=== PATIENT | female | born 1955 | race Caucasian/White ===

== ENCOUNTER 2023-04-02 12:10 | Inpatient (IN) ==
[~2023-04-02 12:10] MED LIST: Buffered Lidocaine 1% SYRIN 1 ml INTRADERM ONE; Lactated Ringers 1000 ml BAG 1,000 ML IV SCH; NS 0.9% 1000 ml BAG 1,000 ML IV ONE; Naloxone 0.4 mg VIAL 0.4 mg/ml 1 ml VIAL IV PRN; Ondansetron 4 mg VIAL 2 MG/ML 2 ml VIAL IV PRN
[2023-04-02 13:21] LABS: INR 1.1 (0.83-1.13)
[2023-04-02] MEDS ORDERED: ceFAZolin 2 GM in NS PREMIX 2 GM/100 ML BAG IVPB ONE (13:31)
[2023-04-02 13:37] LABS: Albumin 3.2 g/dL (3.2-5.2); Albumin/Globulin Ratio 1.6 (1-3); Calcium 7.7 mg/dL (8.6-10.3); Creatinine, Serum 3.71 mg/dL (0.51-0.95); Direct Bilirubin 0.1 mg/dL (0.03-0.18); Indirect Bilirubin 0.2 mg/dL (0.3-1.0); Potassium 5.2 mmol/L (3.5-5.0); Total Bilirubin 0.3 mg/dL (0.2-1.0); Total Protein 5.2 g/dL (6.4-8.9); eGFR CKD-EPI 12.7 (>60)
[2023-04-02 13:43] LABS: Hematocrit 27.5 % (35-45); Hemoglobin 8.5 g/dL (11.5-14.3); Mean Corpuscular Hemoglobin 29.9 pg (27-33); Mean Corpuscular Hgb Conc 30.8 g/dL (31-36); Red Blood Count 2.84 10^6/uL (3.63-4.92); Red Cell Distribution Width 17.4 % (12-17); White Blood Count 3.6 10^3/uL (3.8-11.8)
[2023-04-02 14:03] LABS: Rapid COVID-19 Molecular Undetected (Undetected)
[2023-04-02 14:22] LABS: ABS Lymphocytes 0.4 10^3/uL (1.0-4.8); ABS Monocytes 0.2 10^3/uL (0.0-0.9); ABS Nucleated RBC 0.01 10^3/ul; Burr Cells 2+; Eosinophil % 0.4 %; Lymphocyte % 12.3 %; Mean Platelet Volume 8.2 fL (7.5-11.2); Nucleated Red Blood Cells % 0.3 %/100WBC (0.0-0.8); Platelet Count 22 10^3/uL (150-450); Schistocytes 1+; Tear Drop Cells 1+
[2023-04-02] MEDS ORDERED: Calcium CHLORIDE 10% SYRINGE 1 GM/10 ML ONE (14:25)
[2023-04-02 15:28] LABS: ABS Lymphocytes 0.4 10^3/uL (1.0-4.8); ABS Monocytes 0.2 10^3/uL (0.0-0.9); ABS Neutrophils 2.2 10^3/uL (1.5-7.6); Eosinophil % 0.3 %; Hematocrit 22.1 % (35-45); Hemoglobin 6.9 g/dL (11.5-14.3); Lymphocyte % 12.7 %; Mean Corpuscular Hemoglobin 30.1 pg (27-33); Mean Corpuscular Hgb Conc 31.3 g/dL (31-36); Mean Platelet Volume 8.4 fL (7.5-11.2); Nucleated Red Blood Cells % 0.2 %/100WBC (0.0-0.8); Platelet Count 241 10^3/uL (150-450); White Blood Count 2.9 10^3/uL (3.8-11.8)
[2023-04-02] MEDS ORDERED: Lidocaine 2% PF 5 ML VIAL ONE ×2 (15:41→16:29)
[2023-04-02] MEDS ORDERED: fentaNYL 100 mcg/2 ml 50 MCG/ML VIAL ONE ×2 (15:42→18:58)
[2023-04-02] MEDS ORDERED: Bupivacaine 0.25% SDV PF 10 ML VIAL INJ ONE (15:57)
[2023-04-02] MEDS ORDERED: Methylene Blue 1% (ANTIDOTE) 10 MG/ML 1 ML SDV VIAL IVPB ONE (15:57)
[2023-04-02] MEDS ORDERED: Lidocaine 1% w EPI 1:200,000 SDV 30 ML VIAL ONE (15:57)
[2023-04-02] MEDS ORDERED: Etomidate 20 mg/10 ml 2 MG/ML 10 ml VIAL ONE (16:26)
[2023-04-02] MEDS ORDERED: Rocuronium 50 mg VIAL 10 mg/ml 5 ml VIAL (50 mg) ONE (16:27)
[2023-04-02 16:56] LABS: PCO2 Arterial <20 mmHg (35-45); PO2 Arterial 132 mmHg (80-100)
[2023-04-02] MEDS ORDERED: Sodium Bicarbonate 8.4% 10 ML VIAL IV ONE (17:02)
[2023-04-02] MEDS ORDERED: Propofol 10 MG/ML 20 ML BTL ONE (17:49)
[2023-04-02] MEDS ORDERED: Ondansetron 4 mg VIAL 2 MG/ML 2 ml VIAL ONE ×2 (17:49→18:54)
[2023-04-02] MEDS ORDERED: Dexamethasone IV 4 MG/ML VIAL 1 ml VIAL ONE (17:49)
[2023-04-02] MEDS ORDERED: HYDROmorphone 1 MG/1 ML SYRINGE ONE (18:54)
[2023-04-02] MEDS: fentaNYL 100 mcg/2 ml 50 MCG/ML VIAL IV PRN ×2 (19:00→19:28)
[2023-04-02 19:16] LABS: PCO2 Arterial 21 mmHg (35-45); PO2 Arterial 108 mmHg (80-100)
[2023-04-02] MEDS ORDERED: Zaleplon 10 mg CAP (NF) PO PRN (19:23)
[2023-04-02 20:32] LABS: ABS Basophils 0.1 10^3/uL (0.0-0.1); ABS Lymphocytes 0.2 10^3/uL (1.0-4.8); ABS Monocytes 0.3 10^3/uL (0.0-0.9); ABS Neutrophils 3.8 10^3/uL (1.5-7.6); Hematocrit 25.3 % (35-45); Hemoglobin 7.5 g/dL (11.5-14.3); Lymphocyte % 3.8 %; Mean Corpuscular Hemoglobin 29.6 pg (27-33); Mean Corpuscular Hgb Conc 29.6 g/dL (31-36); Mean Corpuscular Volume 100.2 fL (80-97); Mean Platelet Volume 8.4 fL (7.5-11.2); Platelet Count 220 10^3/uL (150-450); Red Blood Count 2.53 10^6/uL (3.63-4.92); Red Cell Distribution Width 17.4 % (12-17); White Blood Count 4.3 10^3/uL (3.8-11.8)
[2023-04-02 20:53] LABS: Creatinine, Serum 3.42 mg/dL (0.51-0.95); Magnesium 1.5 mg/dL (1.9-2.7); Phosphorus 4.8 mg/dL (2.5-5.0)
[2023-04-02] MEDS ORDERED: MYCOPHENOLATE MOFETIL 200 MG/ML PO SCH (21:00)
[2023-04-02] MEDS: HYDROmorphone 1 MG/1 ML SYRINGE IV SLOW PU PRN ×2 (21:28→22:27)
[2023-04-02] MEDS: Sodium Bicarb 8.4% Vial 50 ML 150 MEQ in D5W 1000 ml BAG 850 ML IV SCH (21:45)
[2023-04-02] MEDS: Heparin 5000 UNITS/ML 1 mL VIAL SUBCUT SCH (22:11)
[2023-04-02] MEDS ORDERED: HYDROmorphone 0.5 MG/0.5 ML SYRINGE IV SLOW PU ONE ×2 (22:18→23:20)
[2023-04-02] MEDS ORDERED: Magnesium Sulfate 2 gm BAG 2 GM/50 ML BAG IVPB ONE (22:29)
[2023-04-02] MEDS: MYCOPHENOLATE MOFETIL 200 MG/ML PO SCH (22:34)
[2023-04-02] MEDS ORDERED: HYDROmorphone 1 MG/1 ML SYRINGE IV SLOW PU PRN (23:09)
[2023-04-02] MEDS: Lactated Ringers 1000 ml BAG 1,000 ML IV SCH (23:10)
[2023-04-02] MEDS: HYDROmorphone 0.5 MG/0.5 ML SYRINGE IV SLOW PU PRN (23:36)
[2023-04-03 00:15] LABS: PCO2 Arterial 27 mmHg (35-45); PO2 Arterial 62 mmHg (80-100)
[2023-04-03] MEDS ORDERED: Magnesium Sulfate IV 1GM/100ML 1 GM/100 ML BAG IV ONE (00:29)
[2023-04-03 01:27] LABS: Calcium 7.4 mg/dL (8.6-10.3); Creatinine, Serum 3.44 mg/dL (0.51-0.95); Potassium 5.1 mmol/L (3.5-5.0); eGFR CKD-EPI 13.9 (>60)
[2023-04-03] MEDS: HYDROmorphone 0.5 MG/0.5 ML SYRINGE IV SLOW PU PRN ×4 (05:38→19:50)
[2023-04-03 07:04] LABS: Hematocrit 24.5 % (35-45); Hemoglobin 7.6 g/dL (11.5-14.3); Mean Corpuscular Hemoglobin 29.8 pg (27-33); Mean Corpuscular Volume 96.1 fL (80-97); Mean Platelet Volume 8.9 fL (7.5-11.2); Platelet Count 257 10^3/uL (150-450); Red Blood Count 2.55 10^6/uL (3.63-4.92); Red Cell Distribution Width 16.9 % (12-17); White Blood Count 2.6 10^3/uL (3.8-11.8)
[2023-04-03 07:13] LABS: Urine Potassium Concentration 22.9 mmol/L
[2023-04-03 07:34] LABS: ABS Lymphocytes 0.3 10^3/uL (1.0-4.8); ABS Monocytes 0.3 10^3/uL (0.0-0.9); ABS Neutrophils 2.1 10^3/uL (1.5-7.6); Eosinophil % 0.4 %; Lymphocyte % 11.1 %
[2023-04-03 07:37] LABS: Albumin 2.6 g/dL (3.2-5.2); Albumin/Globulin Ratio 1.5 (1-3); Calcium 7.3 mg/dL (8.6-10.3); Creatinine, Serum 3.35 mg/dL (0.51-0.95); Globulin 1.7 g/dL (2-4); Magnesium 1.4 mg/dL (1.9-2.7); Phosphorus 4.8 mg/dL (2.5-5.0); Potassium 4.6 mmol/L (3.5-5.0); Total Bilirubin 0.2 mg/dL (0.2-1.0); Total Protein 4.3 g/dL (6.4-8.9); eGFR CKD-EPI 14.4 (>60)
[2023-04-03] MEDS: Ondansetron 4 mg VIAL 2 MG/ML 2 ml VIAL IV PRN ×2 (08:16→15:32)
[2023-04-03] MEDS: Heparin 5000 UNITS/ML 1 mL VIAL SUBCUT SCH ×2 (08:20→21:05)
[2023-04-03] MEDS: MYCOPHENOLATE MOFETIL 200 MG/ML PO SCH ×2 (08:24→20:55)
[2023-04-03] MEDS ORDERED: Magnesium Sulf 4 GM/100 ML IV 4,000 MG/100 ML BAG IVPB ONE (08:30)
[2023-04-03] MEDS: Sodium Bicarb 8.4% Vial 50 ML 150 MEQ in D5W 1000 ml BAG 850 ML IV SCH ×2 (09:11→21:05)
[2023-04-03 09:38] LABS: Urine Osmo 347 mOsm/kg (150-1150)
[2023-04-03] MEDS: Lactated Ringers 1000 ml BAG 1,000 ML IV SCH (15:13)
[2023-04-04] MEDS: HYDROmorphone 0.5 MG/0.5 ML SYRINGE IV SLOW PU PRN ×4 (00:32→20:09)
[2023-04-04] MEDS: Lactated Ringers 1000 ml BAG 1,000 ML IV SCH ×3 (04:34→16:30)
[2023-04-04 06:04] LABS: Hematocrit 20.7 % (35-45); Hemoglobin 6.6 g/dL (11.5-14.3); Mean Corpuscular Hemoglobin 29.4 pg (27-33); Mean Corpuscular Hgb Conc 31.8 g/dL (31-36); Mean Corpuscular Volume 92.5 fL (80-97); Mean Platelet Volume 9.2 fL (7.5-11.2); Platelet Count 189 10^3/uL (150-450); Red Blood Count 2.23 10^6/uL (3.63-4.92); Red Cell Distribution Width 16.8 % (12-17); White Blood Count 2.4 10^3/uL (3.8-11.8)
[2023-04-04 06:33] LABS: Calcium 6.7 mg/dL (8.6-10.3); Creatinine, Serum 2.79 mg/dL (0.51-0.95); Potassium 4.1 mmol/L (3.5-5.0); eGFR CKD-EPI 17.9 (>60)
[2023-04-04] MEDS: Ondansetron 4 mg VIAL 2 MG/ML 2 ml VIAL IV PRN ×3 (07:24→20:56)
[2023-04-04] MEDS: Sodium Bicarb 8.4% Vial 50 ML 150 MEQ in D5W 1000 ml BAG 850 ML IV SCH (07:39)
[2023-04-04 07:45] LABS: Albumin 2.2 g/dL (3.2-5.2); Albumin/Globulin Ratio 1.6 (1-3); Globulin 1.4 g/dL (2-4); Magnesium 2.5 mg/dL (1.9-2.7); Phosphorus 3.2 mg/dL (2.5-5.0); Total Bilirubin 0.2 mg/dL (0.2-1.0); Total Protein 3.6 g/dL (6.4-8.9)
[2023-04-04] MEDS: MYCOPHENOLATE MOFETIL 200 MG/ML PO SCH (09:38)
[2023-04-04] MEDS: Heparin 5000 UNITS/ML 1 mL VIAL SUBCUT SCH ×2 (09:39→20:11)
[2023-04-04 09:55] LABS: Hematocrit 21.4 % (35-45)
[2023-04-04 11:14] LABS: % Iron Saturation 19 % (15-55); .Transferrin < 75 mg/dL (203-362); Iron < 20 ug/dL (50-212); Total Iron Binding Capacity 105 mcg/dL (250-450); Unsaturated Iron Binding 85 ug/dL
[2023-04-04 11:36] LABS: Ferritin 343.8 ng/mL (11-307)
[2023-04-04 11:40] LABS: Folate 4.35 ng/mL (5.90-24.80)
[2023-04-04 11:41] LABS: Vitamin B12 179 pg/mL (180-914)
[2023-04-04] MEDS ORDERED: Ferric Gluconate IV 250 MG in NS 0.9% 250 ml 200 ML IVPB ONE (13:09)
[2023-04-04] MEDS ORDERED: Cyanocobalamin INJ 1,000 MCG/ML VIAL 1 ML VIAL IM ONE (15:32)
[2023-04-04] MEDS ORDERED: Folic Acid IV 1 MG in NS 0.9% 50 ML 50 ML IV ONE (15:35)
[2023-04-04 16:33] LABS: Tacrolimus 8.8 ng/mL
[2023-04-05 05:39] LABS: ALT < 3 U/L (7-52); AST 8 U/L (13-39); Albumin 2.1 g/dL (3.2-5.2); Albumin/Globulin Ratio 1.6 (1-3); Alkaline Phosphatase 52 U/L (35-149); Anion Gap 5 mmol/L (2-16); Blood Urea Nitrogen 38 mg/dL (6-24); CO2 Carbon Dioxide 27 mmol/L (22-32); Calcium 6.3 mg/dL (8.6-10.3); Chloride 109 mmol/L (101-111); Creatinine, Serum 2.99 mg/dL (0.51-0.95); Globulin 1.3 g/dL (2-4); Glucose 94 mg/dL (70-100); Magnesium 2.2 mg/dL (1.9-2.7); Phosphorus 3.4 mg/dL (2.5-5.0); Potassium 4.2 mmol/L (3.5-5.0); Sodium 141 mmol/L (135-145); Total Bilirubin 0.2 mg/dL (0.2-1.0); Total Protein 3.4 g/dL (6.4-8.9); eGFR CKD-EPI 16.5 (>60)
[2023-04-05] MEDS: CALCIUM GLUCONATE 1GM/50ML NS 1 GM/50 ML BAG IV SCH ×2 (06:20→09:50)
[2023-04-05] MEDS: Sodium Bicarb 650 mg (ANTACID) TAB PO SCH ×2 (09:54→16:28)
[2023-04-05] MEDS: Heparin 5000 UNITS/ML 1 mL VIAL SUBCUT SCH (09:56)
[2023-04-05] MEDS: Cyanocobalamin INJ 1,000 MCG/ML VIAL 1 ML VIAL IM SCH (09:59)
[2023-04-05 10:22] LABS: Hematocrit 18.6 % (35-45); Hemoglobin 5.9 g/dL (11.5-14.3); Mean Corpuscular Hemoglobin 29.7 pg (27-33); Mean Corpuscular Hgb Conc 31.7 g/dL (31-36); Mean Corpuscular Volume 93.7 fL (80-97); Mean Platelet Volume 8.8 fL (7.5-11.2); Platelet Count 178 10^3/uL (150-450); Red Blood Count 1.98 10^6/uL (3.63-4.92); Red Cell Distribution Width 16.7 % (12-17); White Blood Count 2.7 10^3/uL (3.8-11.8)
[2023-04-05 11:09] LABS: ABS Lymphocytes 0.2 10^3/uL (1.0-4.8); ABS Monocytes 0.3 10^3/uL (0.0-0.9); ABS Neutrophils 2.1 10^3/uL (1.5-7.6); ABS Nucleated RBC 0.01 10^3/ul; Anisocytosis 1+; Eosinophil % 0.7 %; Hypochromasia 1+; Nucleated Red Blood Cells % 0.2 %/100WBC (0.0-0.8); Tear Drop Cells 1+
[2023-04-05] MEDS: MYCOPHENOLATE MOFETIL 200 MG/ML PO SCH (16:29)
[2023-04-05] MEDS: HYDROmorphone 0.5 MG/0.5 ML SYRINGE IV SLOW PU PRN (18:43)
[2023-04-05 19:33] LABS: Hematocrit 24.9 % (35-45); Hemoglobin 8.1 g/dL (11.5-14.3)
[2023-04-05] MEDS: Lactated Ringers 1000 ml BAG 1,000 ML IV SCH (21:19)
[2023-04-06 06:06] LABS: Hematocrit 23.5 % (35-45); Hemoglobin 7.6 g/dL (11.5-14.3); Mean Corpuscular Hgb Conc 32.5 g/dL (31-36); Mean Corpuscular Volume 92.4 fL (80-97); Mean Platelet Volume 8.6 fL (7.5-11.2); Platelet Count 147 10^3/uL (150-450); Red Blood Count 2.54 10^6/uL (3.63-4.92); Red Cell Distribution Width 16.3 % (12-17); White Blood Count 2.7 10^3/uL (3.8-11.8)
[2023-04-06 06:31] LABS: Anion Gap 7 mmol/L (2-16); Blood Urea Nitrogen 40 mg/dL (6-24); CO2 Carbon Dioxide 25 mmol/L (22-32); Calcium 6.8 mg/dL (8.6-10.3); Chloride 111 mmol/L (101-111); Creatinine, Serum 2.89 mg/dL (0.51-0.95); Glucose 87 mg/dL (70-100); Potassium 3.8 mmol/L (3.5-5.0); Sodium 143 mmol/L (135-145); eGFR CKD-EPI 17.2 (>60)
[2023-04-06 06:32] LABS: ALT < 3 U/L (7-52); AST 9 U/L (13-39); Albumin/Globulin Ratio 1.3 (1-3); Alkaline Phosphatase 54 U/L (35-149); Globulin 1.5 g/dL (2-4); Phosphorus 3.9 mg/dL (2.5-5.0); Total Bilirubin 0.3 mg/dL (0.2-1.0); Total Protein 3.5 g/dL (6.4-8.9)
[2023-04-06 06:37] LABS: ABS Lymphocytes 0.2 10^3/uL (1.0-4.8); ABS Monocytes 0.3 10^3/uL (0.0-0.9); ABS Neutrophils 2.1 10^3/uL (1.5-7.6); Eosinophil % 0.8 %; Nucleated Red Blood Cells % 0.1 %/100WBC (0.0-0.8)
[2023-04-06] MEDS: MYCOPHENOLATE MOFETIL 200 MG/ML PO SCH (09:32)
[2023-04-06] MEDS: Cyanocobalamin INJ 1,000 MCG/ML VIAL 1 ML VIAL IM SCH (09:33)
[2023-04-06] MEDS: Lactated Ringers 1000 ml BAG 1,000 ML IV SCH (10:42)
[2023-04-06] MEDS: HYDROmorphone 0.5 MG/0.5 ML SYRINGE IV SLOW PU PRN ×2 (10:46→20:31)
[2023-04-06] MEDS: Ondansetron 4 mg VIAL 2 MG/ML 2 ml VIAL IV PRN ×2 (11:53→20:31)
[2023-04-06] MEDS: Sodium Bicarb 650 mg (ANTACID) TAB PO SCH ×2 (13:25→20:33)
[2023-04-07] MEDS: Sodium Bicarb 650 mg (ANTACID) TAB PO SCH ×3 (05:52→21:28)
[2023-04-07 08:26] LABS: Hematocrit 21.9 % (35-45); Hemoglobin 7.2 g/dL (11.5-14.3); Mean Corpuscular Hemoglobin 30.1 pg (27-33); Mean Corpuscular Hgb Conc 32.8 g/dL (31-36); Mean Corpuscular Volume 91.8 fL (80-97); Platelet Count 107 10^3/uL (150-450); Red Blood Count 2.38 10^6/uL (3.63-4.92); Red Cell Distribution Width 15.8 % (12-17); White Blood Count 1.6 10^3/uL (3.8-11.8)
[2023-04-07 08:45] LABS: Anion Gap 9 mmol/L (2-16); Blood Urea Nitrogen 41 mg/dL (6-24); CO2 Carbon Dioxide 26 mmol/L (22-32); Calcium 6.6 mg/dL (8.6-10.3); Chloride 110 mmol/L (101-111); Creatinine, Serum 2.67 mg/dL (0.51-0.95); Glucose 101 mg/dL (70-100); Potassium 3.5 mmol/L (3.5-5.0); Sodium 145 mmol/L (135-145); eGFR CKD-EPI 18.9 (>60)
[2023-04-07 08:55] LABS: ALT < 3 U/L (7-52); AST 7 U/L (13-39); Albumin 1.9 g/dL (3.2-5.2); Albumin/Globulin Ratio 1.4 (1-3); Alkaline Phosphatase 48 U/L (35-149); Globulin 1.4 g/dL (2-4); Magnesium 1.8 mg/dL (1.9-2.7); Phosphorus 3.4 mg/dL (2.5-5.0); Total Bilirubin 0.2 mg/dL (0.2-1.0); Total Protein 3.3 g/dL (6.4-8.9)
[2023-04-07 09:16] LABS: ABS Lymphocytes 0.2 10^3/uL (1.0-4.8); ABS Monocytes 0.2 10^3/uL (0.0-0.9); ABS Neutrophils 1.2 10^3/uL (1.5-7.6); Eosinophil % 1.6 %; Lymphocyte % 9.9 %; Nucleated Red Blood Cells % 0.3 %/100WBC (0.0-0.8)
[2023-04-07] MEDS: Ondansetron 4 mg VIAL 2 MG/ML 2 ml VIAL IV PRN ×2 (09:18→18:33)
[2023-04-07] MEDS: Cyanocobalamin INJ 1,000 MCG/ML VIAL 1 ML VIAL IM SCH (09:18)
[2023-04-07] MEDS: Lactated Ringers 1000 ml BAG 1,000 ML IV SCH ×2 (09:41→23:31)
[2023-04-07] MEDS: MYCOPHENOLATE MOFETIL 200 MG/ML PO SCH (09:44)
[2023-04-07] MEDS: HYDROmorphone 0.5 MG/0.5 ML SYRINGE IV SLOW PU PRN ×4 (12:00→21:39)
[2023-04-07] MEDS ORDERED: Magnesium Sulfate 2 gm BAG 2 GM/50 ML BAG IVPB ONE (17:02)
[2023-04-07] MEDS ORDERED: Magnesium Sulfate IV 1GM/100ML 1 GM/100 ML BAG IV ONE (19:02)
[2023-04-08] MEDS: Sodium Bicarb 650 mg (ANTACID) TAB PO SCH ×4 (05:18→22:07)
[2023-04-08 08:26] LABS: Anion Gap 8 mmol/L (2-16); Blood Urea Nitrogen 40 mg/dL (6-24); CO2 Carbon Dioxide 25 mmol/L (22-32); Calcium 6.7 mg/dL (8.6-10.3); Chloride 110 mmol/L (101-111); Glucose 109 mg/dL (70-100); Potassium 3.7 mmol/L (3.5-5.0); Sodium 143 mmol/L (135-145); eGFR CKD-EPI 19.5 (>60)
[2023-04-08 08:27] LABS: ALT < 3 U/L (7-52); AST 7 U/L (13-39); Albumin 2.2 g/dL (3.2-5.2); Albumin/Globulin Ratio 1.2 (1-3); Alkaline Phosphatase 56 U/L (35-149); Globulin 1.8 g/dL (2-4); Magnesium 2.6 mg/dL (1.9-2.7); Phosphorus 2.6 mg/dL (2.5-5.0); Total Bilirubin 0.3 mg/dL (0.2-1.0)
[2023-04-08 09:03] LABS: Hematocrit 25.9 % (35-45); Hemoglobin 8.4 g/dL (11.5-14.3); Mean Corpuscular Hemoglobin 30.2 pg (27-33); Mean Corpuscular Hgb Conc 32.3 g/dL (31-36); Mean Corpuscular Volume 93.6 fL (80-97); Mean Platelet Volume 7.6 fL (7.5-11.2); Platelet Count 104 10^3/uL (150-450); Red Blood Count 2.77 10^6/uL (3.63-4.92); Red Cell Distribution Width 16.4 % (12-17); White Blood Count 2.9 10^3/uL (3.8-11.8)
[2023-04-08] MEDS: MYCOPHENOLATE MOFETIL 200 MG/ML PO SCH (10:07)
[2023-04-08] MEDS: HYDROmorphone 0.5 MG/0.5 ML SYRINGE IV SLOW PU PRN ×4 (10:10→22:14)
[2023-04-08] MEDS: Cyanocobalamin INJ 1,000 MCG/ML VIAL 1 ML VIAL IM SCH (10:13)
[2023-04-08 10:44] LABS: ABS Lymphocytes 0.3 10^3/uL (1.0-4.8); ABS Monocytes 0.4 10^3/uL (0.0-0.9); ABS Neutrophils 2.2 10^3/uL (1.5-7.6); ABS Nucleated RBC 0.02 10^3/ul; Eosinophil % 1.1 %; Lymphocyte % 9.3 %; Nucleated Red Blood Cells % 0.7 %/100WBC (0.0-0.8); RBC Morphology Normal (Normal)
[2023-04-08] MEDS: Ondansetron 4 mg VIAL 2 MG/ML 2 ml VIAL IV PRN ×2 (13:04→19:57)
[2023-04-08] MEDS ORDERED: Lactated Ringers 1000 ml BAG 1,000 ML IV SCH ×2 (17:00)
[2023-04-09] MEDS: Sodium Bicarb 650 mg (ANTACID) TAB PO SCH ×3 (05:16→20:40)
[2023-04-09 06:44] LABS: Calcium 6.4 mg/dL (8.6-10.3); Creatinine, Serum 2.59 mg/dL (0.51-0.95); Magnesium 2.3 mg/dL (1.9-2.7); Potassium 4.2 mmol/L (3.5-5.0); eGFR CKD-EPI 19.6 (>60)
[2023-04-09 06:45] LABS: ABS Lymphocytes 0.2 10^3/uL (1.0-4.8); ABS Monocytes 0.3 10^3/uL (0.0-0.9); ABS Neutrophils 1.4 10^3/uL (1.5-7.6); ABS Nucleated RBC 0.01 10^3/ul; Eosinophil % 1.2 %; Hematocrit 23.8 % (35-45); Hemoglobin 7.2 g/dL (11.5-14.3); Lymphocyte % 8.1 %; Mean Corpuscular Hemoglobin 29.7 pg (27-33); Mean Corpuscular Hgb Conc 30.4 g/dL (31-36); Mean Corpuscular Volume 97.5 fL (80-97); Mean Platelet Volume 8.2 fL (7.5-11.2); Nucleated Red Blood Cells % 0.3 %/100WBC (0.0-0.8); Platelet Count 85 10^3/uL (150-450); Red Blood Count 2.44 10^6/uL (3.63-4.92); Red Cell Distribution Width 16.6 % (12-17); White Blood Count 1.9 10^3/uL (3.8-11.8)
[2023-04-09] MEDS: MYCOPHENOLATE MOFETIL 200 MG/ML PO SCH (10:23)
[2023-04-09] MEDS: Cyanocobalamin INJ 1,000 MCG/ML VIAL 1 ML VIAL IM SCH (10:27)
[2023-04-09] MEDS: Calcium Carbonate LIQ 1,250 mg/5 ml UDC PO SCH (12:06)
[2023-04-09] MEDS: Ondansetron 4 mg VIAL 2 MG/ML 2 ml VIAL IV PRN (15:16)
[2023-04-10] MEDS: Sodium Bicarb 650 mg (ANTACID) TAB PO SCH ×2 (06:19→12:41)
[2023-04-10 07:27] LABS: Calcium 6.8 mg/dL (8.6-10.3); Creatinine, Serum 2.6 mg/dL (0.51-0.95); Potassium 3.9 mmol/L (3.5-5.0); eGFR CKD-EPI 19.5 (>60)
[2023-04-10 08:36] LABS: ABS Lymphocytes 0.3 10^3/uL (1.0-4.8); ABS Monocytes 0.3 10^3/uL (0.0-0.9); ABS Neutrophils 2.2 10^3/uL (1.5-7.6); Eosinophil % 0.9 %; Hemoglobin 6.8 g/dL (11.5-14.3); Lymphocyte % 9.6 %; Mean Corpuscular Hemoglobin 30.1 pg (27-33); Mean Corpuscular Hgb Conc 32.2 g/dL (31-36); Mean Corpuscular Volume 93.5 fL (80-97); Mean Platelet Volume 8.5 fL (7.5-11.2); Nucleated Red Blood Cells % 0.1 %/100WBC (0.0-0.8); Platelet Count 84 10^3/uL (150-450); Red Blood Count 2.25 10^6/uL (3.63-4.92); Red Cell Distribution Width 15.2 % (12-17); White Blood Count 2.8 10^3/uL (3.8-11.8)
[2023-04-10] MEDS: MYCOPHENOLATE MOFETIL 200 MG/ML PO SCH (09:21)
[2023-04-10] MEDS: Cyanocobalamin INJ 1,000 MCG/ML VIAL 1 ML VIAL IM SCH (09:22)
[2023-04-10] MEDS: Ondansetron 4 mg VIAL 2 MG/ML 2 ml VIAL IV PRN (09:29)
[2023-04-10] MEDS: Calcium Carbonate LIQ 1,250 mg/5 ml UDC PO SCH (10:56)
[2023-04-10 15:47] VITALS: BP 118/77
== END 2023-04-10 15:50 | disposition home or self-care (01) | DRG 641 ==
LOC: OR 12:10 → SSU 20:29 → SUATTDRO 20:29
PROVIDERS: ADMIT Surgery; ATTEND Student in an Organized Health Care Education/Training Program

== ENCOUNTER 2023-05-02 20:06 | Inpatient (IN) ==
[2023-05-02 22:01] LABS: ABS Basophils 0.1 10^3/uL (0.0-0.1); ABS Eosinophils 0.1 10^3/uL (0.0-0.5); ABS Lymphocytes 0.5 10^3/uL (1.0-4.8); ABS Monocytes 0.8 10^3/uL (0.0-0.9); ABS Neutrophils 9.4 10^3/uL (1.5-7.6); Eosinophil % 0.7 %; Hematocrit 23.9 % (35-45); Hemoglobin 7.8 g/dL (11.5-14.3); Lymphocyte % 4.9 %; Mean Corpuscular Hemoglobin 30.6 pg (27-33); Mean Corpuscular Hgb Conc 32.6 g/dL (31-36); Mean Platelet Volume 8.9 fL (7.5-11.2); Platelet Count 196 10^3/uL (150-450); Red Blood Count 2.54 10^6/uL (3.63-4.92); Red Cell Distribution Width 19.1 % (12-17)
[2023-05-02 22:24] LABS: Albumin 2.8 g/dL (3.2-5.2); Albumin/Globulin Ratio 1.1 (1-3); Calcium 6.5 mg/dL (8.6-10.3); Creatinine, Serum 2.64 mg/dL (0.51-0.95); Globulin 2.5 g/dL (2-4); Potassium 7.5 mmol/L (3.5-5.0); Total Bilirubin 0.3 mg/dL (0.2-1.0); Total Protein 5.3 g/dL (6.4-8.9); eGFR CKD-EPI 19.1 (>60)
[2023-05-02] MEDS ORDERED: CALCIUM GLUCONATE 1GM/50ML NS 1 GM/50 ML BAG IV ONE (22:47)
[2023-05-02] MEDS ORDERED: Dextrose 50% Syringe 50 ml 25 GM/50 ML SYRINGE IV PUSH ONE (22:48)
[2023-05-02] MEDS ORDERED: SODIUM CHLORIDE IV SCH (23:00)
[2023-05-02] MEDS ORDERED: D10W IV SCH (23:00)
[2023-05-02] MEDS ORDERED: Sodium Polystyrene ORAL.SUSP 15 GM/60 ML BTL PO ONE (23:02)
[2023-05-02] MEDS ORDERED: Sodium Bicarbonate 8.4% IV 150 MEQ in D5W 1000 ML BAG 850 ML IV ONE (23:30)
[2023-05-02] MEDS ORDERED: NS 0.9% 1000 ml BAG 1,000 ML IV ONE (23:44)
[2023-05-03] MEDS ORDERED: Ondansetron 4 mg VIAL 2 MG/ML 2 ml VIAL IV ONE (01:00)
[2023-05-03 05:03] LABS: Calcium 6.2 mg/dL (8.6-10.3); Creatinine, Serum 2.5 mg/dL (0.51-0.95); Magnesium 1.4 mg/dL (1.9-2.7); Phosphorus 3.9 mg/dL (2.5-5.0); Potassium 6.1 mmol/L (3.5-5.0); eGFR CKD-EPI 20.4 (>60)
[2023-05-03 05:21] LABS: Hematocrit 22.5 % (35-45); Hemoglobin 7.1 g/dL (11.5-14.3); Mean Corpuscular Hemoglobin 29.9 pg (27-33); Mean Corpuscular Hgb Conc 31.5 g/dL (31-36); Mean Corpuscular Volume 94.8 fL (80-97); Platelet Count 190 10^3/uL (150-450); Red Blood Count 2.38 10^6/uL (3.63-4.92); Red Cell Distribution Width 19.7 % (12-17); White Blood Count 5.7 10^3/uL (3.8-11.8)
[2023-05-03] MEDS: Levothyroxine 100 MCG/5 ML VIAL IV SCH (05:57)
[2023-05-03] MEDS: Heparin 5000 UNITS/ML 1 mL VIAL SUBCUT SCH ×2 (05:57→14:06)
[2023-05-03] MEDS ORDERED: Magnesium Sulfate 2 gm BAG 2 GM/50 ML BAG IVPB ONE (07:52)
[2023-05-03] MEDS ORDERED: Sodium Bicarbonate 8.4% IV 150 MEQ in D5W 1000 ML BAG 850 ML IV SCH (08:00)
[2023-05-03 10:36] LABS: Calcium 6.2 mg/dL (8.6-10.3); Creatinine, Serum 2.37 mg/dL (0.51-0.95); Potassium 5.6 mmol/L (3.5-5.0); eGFR CKD-EPI 21.8 (>60)
[2023-05-03] MEDS: Bumetanide IV 0.25 MG/ML 4 ml VIAL (1 mg) IV SLOW PU SCH ×2 (11:58→22:44)
[2023-05-03 11:59] LABS: Hepatitis B Surface Antigen Nonreactive (Nonreactive)
[2023-05-03 12:16] LABS: Hepatitis B Surface Ab Not Immune (Immune); Hepatitis C Antibody Negative (Negative)
[2023-05-03] MEDS: Albumin Human 25% 25 GM/100 ML BTL IV SCH ×2 (14:06→15:17)
[2023-05-03 16:40] LABS: Anion Gap 8 mmol/L (2-16); Blood Urea Nitrogen 51 mg/dL (6-24); CO2 Carbon Dioxide 20 mmol/L (22-32); Calcium 6.4 mg/dL (8.6-10.3); Chloride 106 mmol/L (101-111); Creatinine, Serum 2.46 mg/dL (0.51-0.95); Glucose 94 mg/dL (70-100); Sodium 134 mmol/L (135-145); eGFR CKD-EPI 20.8 (>60)
[2023-05-03] MEDS: Ondansetron ODT 4 mg TAB 4 MG TAB PO PRN ×2 (17:14→22:44)
[2023-05-04 00:40] LABS: Calcium 6.2 mg/dL (8.6-10.3); Creatinine, Serum 2.62 mg/dL (0.51-0.95); Potassium 5.3 mmol/L (3.5-5.0); eGFR CKD-EPI 19.3 (>60)
[2023-05-04 06:03] LABS: ABS Basophils 0.1 10^3/uL (0.0-0.1); ABS Eosinophils 0.1 10^3/uL (0.0-0.5); ABS Lymphocytes 0.5 10^3/uL (1.0-4.8); ABS Monocytes 0.4 10^3/uL (0.0-0.9); ABS Neutrophils 4.8 10^3/uL (1.5-7.6); ABS Nucleated RBC 0.01 10^3/ul; Eosinophil % 2.4 %; Hematocrit 19.5 % (35-45); Hemoglobin 6.5 g/dL (11.5-14.3); Lymphocyte % 8.9 %; Mean Corpuscular Hemoglobin 30.3 pg (27-33); Mean Corpuscular Hgb Conc 33.3 g/dL (31-36); Mean Corpuscular Volume 90.9 fL (80-97); Mean Platelet Volume 8.7 fL (7.5-11.2); Nucleated Red Blood Cells % 0.1 %/100WBC (0.0-0.8); Platelet Count 191 10^3/uL (150-450); Red Blood Count 2.15 10^6/uL (3.63-4.92); Red Cell Distribution Width 19.1 % (12-17); White Blood Count 5.9 10^3/uL (3.8-11.8)
[2023-05-04 06:54] LABS: Calcium 6.1 mg/dL (8.6-10.3); Creatinine, Serum 2.53 mg/dL (0.51-0.95); eGFR CKD-EPI 20.1 (>60)
[2023-05-04] MEDS: Levothyroxine 100 MCG/5 ML VIAL IV SCH (09:26)
[2023-05-04] MEDS: Bumetanide IV 0.25 MG/ML 4 ml VIAL (1 mg) IV SLOW PU SCH ×2 (09:40→20:17)
[2023-05-04] MEDS: Ondansetron ODT 4 mg TAB 4 MG TAB PO PRN ×2 (14:31→20:32)
[2023-05-04] MEDS ORDERED: MYCOPHENOLATE MOFETIL 200 MG/ML PO SCH (21:00)
[2023-05-04] MEDS: MYCOPHENOLATE MOFETIL 200 MG/ML PO SCH (21:27)
[2023-05-05 08:13] LABS: ABS Basophils 0.2 10^3/uL (0.0-0.1); ABS Eosinophils 0.1 10^3/uL (0.0-0.5); ABS Lymphocytes 0.5 10^3/uL (1.0-4.8); ABS Monocytes 0.5 10^3/uL (0.0-0.9); Eosinophil % 1.5 %; Hematocrit 24.9 % (35-45); Hemoglobin 8.4 g/dL (11.5-14.3); Lymphocyte % 7.5 %; Mean Corpuscular Hemoglobin 29.1 pg (27-33); Mean Corpuscular Hgb Conc 33.5 g/dL (31-36); Mean Corpuscular Volume 86.8 fL (80-97); Platelet Count 217 10^3/uL (150-450); Red Blood Count 2.87 10^6/uL (3.63-4.92); Red Cell Distribution Width 21.1 % (12-17); White Blood Count 7.3 10^3/uL (3.8-11.8)
[2023-05-05] MEDS: Ondansetron ODT 4 mg TAB 4 MG TAB PO PRN ×2 (08:31→20:56)
[2023-05-05] MEDS: MYCOPHENOLATE MOFETIL 200 MG/ML PO SCH ×2 (08:32→20:56)
[2023-05-05] MEDS ORDERED: Bumetanide IV 0.25 MG/ML 4 ml VIAL (1 mg) IV SLOW PU SCH (09:00)
[2023-05-05 09:14] LABS: Calcium 6.1 mg/dL (8.6-10.3); Creatinine, Serum 2.57 mg/dL (0.51-0.95); Magnesium 1.8 mg/dL (1.9-2.7); Potassium 4.9 mmol/L (3.5-5.0); eGFR CKD-EPI 19.8 (>60)
[2023-05-05] MEDS ORDERED: Magnesium Sulfate IV 1GM/100ML 1 GM/100 ML BAG IV ONE (11:33)
[2023-05-05 11:53] LABS: Albumin 2.6 g/dL (3.2-5.2)
[2023-05-05 15:04] LABS: T4, Total 6.08 mcg/dL (6.09-12.23)
[2023-05-05 15:35] LABS: TSH Ultra Thyroid Stim Horm 100.84 mcIU/mL (0.34-5.60)
[2023-05-05] MEDS: Calcium Carb (TUMS) 500 mg CHEW TAB PO SCH (20:55)
[2023-05-06 06:57] LABS: ABS Basophils 0.1 10^3/uL (0.0-0.1); ABS Eosinophils 0.1 10^3/uL (0.0-0.5); ABS Lymphocytes 0.6 10^3/uL (1.0-4.8); ABS Monocytes 0.5 10^3/uL (0.0-0.9); Hematocrit 25.4 % (35-45); Hemoglobin 8.5 g/dL (11.5-14.3); Lymphocyte % 7.1 %; Mean Corpuscular Hemoglobin 29.2 pg (27-33); Mean Corpuscular Hgb Conc 33.5 g/dL (31-36); Mean Corpuscular Volume 87.2 fL (80-97); Mean Platelet Volume 8.4 fL (7.5-11.2); Platelet Count 207 10^3/uL (150-450); Red Blood Count 2.92 10^6/uL (3.63-4.92); Red Cell Distribution Width 21.1 % (12-17); White Blood Count 8.2 10^3/uL (3.8-11.8)
[2023-05-06 08:01] LABS: Calcium 6.1 mg/dL (8.6-10.3); Creatinine, Serum 2.66 mg/dL (0.51-0.95); Potassium 4.6 mmol/L (3.5-5.0)
[2023-05-06] MEDS: MYCOPHENOLATE MOFETIL 200 MG/ML PO SCH ×2 (09:12→20:46)
[2023-05-06] MEDS: Ondansetron ODT 4 mg TAB 4 MG TAB PO PRN ×3 (09:12→22:17)
[2023-05-06] MEDS: Calcium Carb (TUMS) 500 mg CHEW TAB PO SCH ×2 (09:13→20:46)
[2023-05-07 07:58] LABS: Calcium 6.2 mg/dL (8.6-10.3); Creatinine, Serum 2.71 mg/dL (0.51-0.95); Potassium 4.8 mmol/L (3.5-5.0); eGFR CKD-EPI 18.6 (>60)
[2023-05-07] MEDS: Calcium Carb (TUMS) 500 mg CHEW TAB PO SCH (08:01)
[2023-05-07] MEDS: Ondansetron ODT 4 mg TAB 4 MG TAB PO PRN ×2 (08:01→14:34)
[2023-05-07 08:20] LABS: Hematocrit 23.5 % (35-45); Hemoglobin 7.8 g/dL (11.5-14.3); Mean Corpuscular Hemoglobin 29.1 pg (27-33); Mean Corpuscular Hgb Conc 33.4 g/dL (31-36); Mean Corpuscular Volume 87.2 fL (80-97); Mean Platelet Volume 8.1 fL (7.5-11.2); Platelet Count 191 10^3/uL (150-450); Red Cell Distribution Width 21.4 % (12-17); White Blood Count 11.2 10^3/uL (3.8-11.8)
[2023-05-07] MEDS: MYCOPHENOLATE MOFETIL 200 MG/ML PO SCH (09:26)
[2023-05-07 09:42] VITALS: BP 111/55
== END 2023-05-07 15:10 | disposition home or self-care (01) | DRG 640 ==
LOC: ED 20:06 → EDHOLD 23:51 → SUATTDRO 23:51 → ICU 05-03 01:25 → MEDTELE 05-03 20:49
PROVIDERS: ADMIT Student in an Organized Health Care Education/Training Program; ATTEND Internal Medicine

== ENCOUNTER 2023-10-25 19:58 | Observation (INO) ==
[2023-10-25 21:30] LABS: ABS Eosinophils 0.1 10^3/uL (0.0-0.5); ABS Lymphocytes 0.6 10^3/uL (1.0-4.8); ABS Monocytes 0.6 10^3/uL (0.0-0.9); ABS Neutrophils 6.7 10^3/uL (1.5-7.6); Eosinophil % 0.8 %; Hemoglobin 7.2 g/dL (11.5-14.3); Lymphocyte % 7.9 %; Mean Corpuscular Hemoglobin 30.2 pg (27-33); Mean Corpuscular Hgb Conc 34.2 g/dL (31-36); Mean Corpuscular Volume 88.3 fL (80-97); Mean Platelet Volume 8.6 fL (7.5-11.2); Platelet Count 152 10^3/uL (150-450); Red Blood Count 2.38 10^6/uL (3.63-4.92); Red Cell Distribution Width 14.4 % (12-17)
[2023-10-25 22:13] LABS: Calcium 7.8 mg/dL (8.6-10.3); Potassium 3.9 mmol/L (3.5-5.0)
[2023-10-25 22:14] LABS: Albumin 4.6 g/dL (3.2-5.2); Albumin/Globulin Ratio 1.6 (1-3); C Reactive Protein 2.41 mg/L (<8.01); Creatinine, Serum 5.51 mg/dL (0.51-0.95); Globulin 2.9 g/dL (2-4); Total Bilirubin 0.4 mg/dL (0.2-1.0); Total Protein 7.5 g/dL (6.4-8.9); eGFR CKD-EPI 7.9 (>60)
[2023-10-25] MEDS: Lactated Ringers 1000 ml BAG 1,000 ML IV ONE (22:41)
[2023-10-25] MEDS ORDERED: Lorazepam PYXIS KEY PRN (22:55)
[2023-10-25] MEDS: LORazepam 2 mg VIAL 1 ml IV PUSH ONE (23:27)
[2023-10-26] MEDS: Morphine ORAL CONCENTRATE 5 MG/0.25 ML ORAL.SYRIN PO PRN ×2 (03:16→11:51)
[2023-10-26] MEDS: Scopolamine 1 mg/72hr PATCH TRANSDERM SCH (09:32)
[2023-10-26] MEDS: Ondansetron 4 mg VIAL 2 MG/ML 2 ml VIAL IV PRN (09:32)
[2023-10-26 15:04] VITALS: BP 121/57
== END 2023-10-26 15:40 | disposition short-term general hospital (02) ==
LOC: EDHOLD 19:58 → ED 19:58 → SUATTDRO 23:56 → MEDTELE 10-26 01:51
PROVIDERS: ADMIT Internal Medicine; ATTEND Internal Medicine